=== PATIENT | male | born 2000 | race Two or more races ===

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

== ENCOUNTER 2020-08-22 01:32 | Emergency (ER) | payer BC | END 2020-08-22 01:54 | LOC: ERS 01:32 | DX: Z02.89 Encounter for other administrative examinations (principal) ==

== ENCOUNTER 2021-11-10 02:36 | Emergency (ER) | payer BC ==
[2021-11-10] MEDS ORDERED: Ondansetron ODT 4 MG TAB ONE (02:54)
[2021-11-10] MEDS ORDERED: Acetaminophen 500 MG TAB ONE (02:54)
== END 2021-11-10 03:55 | disposition home or self-care (01) ==
LOC: ERS 02:36
DX: K52.9 Noninfective gastroenteritis and colitis, unspecified (principal); F17.290 Nicotine dependence, other tobacco product, uncomplicated
CPT/HCPCS: 71045; 93005; Q0162